=== PATIENT | male | born 1965 | race Two or more races ===

== ENCOUNTER 2021-01-27 14:06 | Emergency (ER) | payer OTHER ==
[~2021-01-27] VITALS: Ht 170.2 cm; Wt 81.2 kg
[2021-01-27] MEDS ORDERED: NORVASC2.5 M1 (14:21)
[2021-01-28] MEDS ORDERED: EFFER-K 10 MEQ10 MEQ PO (15:54)
[2021-01-28] MEDS ORDERED: VENLAFAXINE HCL75 M2 PO (15:54)
[2021-02-08] MEDS ORDERED: JULUCA 50-25 M1 EACH (07:36)
== END 2021-01-28 16:33 | disposition home or self-care (01) ==
LOC: ER 14:06
DX: S90.32XA Contusion of left foot, initial encounter (principal); S80.01XA Contusion of right knee, initial encounter; W18.39XA Other fall on same level, initial encounter; Y93.89 Activity, other specified; Y92.22 Religious institution as the place of occurrence of the external cause; Y99.8 Other external cause status; R20.0 Anesthesia of skin; R42 Dizziness and giddiness; F41.0 Panic disorder [episodic paroxysmal anxiety]

== ENCOUNTER 2024-05-18 03:21 | Emergency (ER) | payer OTHER ==
[~2024-05-18] VITALS: Ht 170.2 cm; Wt 81.6 kg
[~2024-05-18 03:21] MED LIST: AMLODIPINE-OLM1 EAC2 PO; AVAPRO75 MG PO; DECADRON4 MG PO; EFFER-K 10 MEQ10 MEQ PO; JULUCA 50-25 M1 EACH; NORFLEX100MG PO; NORVASC2.5 M1; VENLAFAXINE HC150 M1 PO; VENLAFAXINE HCL75 M2 PO
[2024-05-18] MEDS ORDERED: LOSARTAN POTASS25 MG PO (03:44)
[2024-05-18] MEDS ORDERED: DEXAMETHASONE SODIUM PHOSPHATE 4 MG/ML VIAL IM STA (05:06)
[2024-05-18] MEDS ORDERED: ORPHENADRINE CITRATE 30 MG/ML AMPUL IM STA (05:06)
[2024-05-18] MEDS ORDERED: OxyCODONE HCL/APAP UD (PERCOCET) PO STA (05:06)
== END 2024-05-18 05:41 | disposition home or self-care (01) ==
LOC: ER 03:23
DX: M54.16 Radiculopathy, lumbar region (principal); Z88.5 Allergy status to narcotic agent
CPT/HCPCS: 96372; 99282; J1100; J2360